=== PATIENT | female | born 1985 | race Caucasian/White ===

== ENCOUNTER 2017-11-24 21:40 | Emergency (ER) | payer OTHER ==
[2017-11-24] MEDS ORDERED: NS 1,000 ML IV ONE (21:50)
--- NOTE | 2017-11-24 22:01 | EDPHY ---
H & P Stated Complaint: ~ 7wks preg, bleeding since 1800 Source: Patient, Family () Exam Limitations: No limitations - Personal History LMP (Females 10-55): Current Tetanus Diphtheria and Acellular Pertussis (TDAP): Yes - Medical/Surgical History Hx Asthma: No Hx Chronic Respiratory Disease: No Hx Diabetes: No Hx Cardiac Disease: No Hx Renal Disease: No Hx Cirrhosis: No Hx Alcoholism: No Hx HIV/AIDS: No Hx Splenectomy or Spleen Trauma: No Other PMH: denies - Social History Smoking Status: Never smoked Time Seen by Provider: 11/24/17 21:48 HPI/ROS: HPI: This is a 32-year-old female who presents with Chief Complaint: ~ 7wks preg, bleeding since 1800 Location: Quality: Vaginal bleeding Duration: 3-4 hours prior to arrival Signs and Symptoms: no fever, no nausea, no vomiting, no hematemesis, no blood in stool, no abdominal bloating, no diarrhea, no back pain, no urinary symptoms , no vaginal discharge, no indigestion, no chest pain, no shortness of breath Timing: Sudden onset, improving Severity: Mild Context: Patient is a G2; with a history of 1st trimester miscarriage, completed in vitro fertilization treatments, currently 7 weeks , presents with sudden onset around 6:00 p.m. While using the restroom of bright red blood on her underwear. Denies any clots. Patient reports that since that time it has been very scant in nature. She denies any recent sexual intercourse , abdominal pain, nausea, vomiting, fevers, urinary symptoms. Patient is originally from [place] and is here with her on a business trip. She is unsure of her blood type. Patient takes Estrogel and progesterone. Modifying Factors: None Comment: ROS: see HPI Constitutional: No fever, no chills, no weight loss Eyes: No blurred vision Respiratory: No shortness of breath, no cough Cardiovascular: No chest pain, no palpitations Gastrointestinal: No nausea, no vomiting, no diarrhea, no hematemesis, no blood in stool Genitourinary: No dysuria, no blood in urine Extremities: No myalgias, no edema Neurologic: No weakness, no numbness Skin: No rashes, no petechiae Hematologic: No bruising, no bleeding MEDICAL/SURGICAL/SOCIAL HISTORY: Medical history: Generally healthy. Does not take any regular medications. Surgical history: Denies Social history: . Nonsmoker. Family history noncontributory. CONSTITUTIONAL: Well-developed, well-nourished adult white female, awake and alert, no obvious distress HEENT: Atraumatic and normocephalic, PERRL, EOMI. Nares patent; no rhinorrhea; no nasal mucosal edema. Tympanic membranes clear. Oropharynx clear, no exudate and moist pink mucosa. Airway patent. No lymphadenopathy. No meningismus. Cardiovascular: Normal S1/S2, regular rate, regular rhythm, without murmur rub or gallop. PULMONARY/CHEST: Symmetrical and nontender. Clear to auscultation bilaterally. Good air movement. No accessory muscle usage. ABDOMEN: Soft, nondistended, nontender, no rebound, no guarding, no peritoneal signs, no masses or organomegaly. No CVAT. EXTREMITIES: 2/2 pulses, strength 5/5, no deformities, no clubbing, no cyanosis or edema. NEUROLOGICAL: no focal neuro deficits. GCS 15. SKIN: Warm and dry, no erythema. no rash. Good capillary refill. (Samra,Terra) Constitutional: Initial Vital Signs Temperature (C) 36.6 C 11/24/17 21:45 Heart Rate 92 11/24/17 21:45 Respiratory Rate 19 11/24/17 21:45 Blood Pressure 104/81 H 11/24/17 21:45 O2 Sat (%) 96 11/24/17 21:45 O2 Delivery Mode Room Air Allergies/Adverse Reactions: No Known Allergies Allergy (Unverified 11/24/17 21:45) Home Medications: Medication Instructions Recorded Estrogel 11/24/17 Progesterone 11/24/17 Medical Decision Making - Diagnostics Imaging Results: Imaging Impressions Obstetrics Ultrasound 11/24/17 21:51 Impression: There is a single viable intrauterine gestation with an estimated age of 6 weeks 0 days, and biometry concordant with a gestational age based upon IVF. There is a small right-sided subchorionic hemorrhage present, and the heart rate is at the low-normal range. It may be worthwhile to consider follow-[facility] between 11 and 13 weeks gestation for further screening evaluation. Findings were discussed with Gary Meza M.D. at 23:18, on 11/24/2017. ED Course/Re-evaluation: Vital signs reviewed and stable upon arrival. Labs, urinalysis, ultrasound, IV fluids ordered Patient given 1 L normal saline. 1033: Urinalysis shows 3+ blood, trace bacteria but no ketones, no protein. Labs reviewed and WBC 14K Blood type= 0 positive 1115: End of Shift. Signed over to Dr. Meza pending ultrasound results. This patient was seen under the supervision of my secondary supervising physician. I evaluated care for this patient independently. Discussed this patient with Dr. Meza. (Leena Cabrales) 2339: Ultrasound called to me by Dr. Husam Alejandro. Small subchorionic hemorrhage. heart rate 117. 1249: I went over the patient's results with her. Including blood work, ultrasound findings. Discussed ultrasound findings in detail. They are comfortable being discharged. I did go over understanding of return precautions understands return emergency room if there is worsening bleeding, pelvic cramping. Small subchorionic hemorrhage. Heart rate 117. Return precautions discussed. Do recommend follow up with their OBGYN when he return to home. (Gary Meza) Differential Diagnosis: Vaginal bleeding including but not limited to ectopic , menses, miscarriage, and dysfunctional uterine bleeding. (Leena Cabrales) - Data Points Laboratory Results: Laboratory Results 11/24/17 22:05 11/24/17 22:05 11/24/17 11/24/17 11/24/17 22:05 22:05 22:05 WBC 14.08 10^3/uL H 10^3/uL (3.80-9.50) RBC 4.35 10^6/uL 10^6/uL (4.18-5.33) Hgb 13.5 g/dL g/dL (12.6-16.3) Hct 39.8 % % (38.0-47.0) MCV 91.5 fL fL (81.5-99.8) MCH 31.0 pg pg (27.9-34.1) MCHC 33.9 g/dL g/dL (32.4-36.7) RDW 12.0 % % (11.5-15.2) Plt Count 283 10^3/uL 10^3/uL (150-400) MPV 9.6 fL fL (8.7-11.7) Neut % (Auto) 74.3 % H % (39.3-74.2) Lymph % (Auto) 17.1 % % (15.0-45.0) [place] % (Auto) 6.0 % % (4.5-13.0) Eos % (Auto) 1.8 % % (0.6-7.6) Baso % (Auto) 0.4 % % (0.3-1.7) Nucleat RBC Rel Count 0.0 % % (0.0-0.2) Absolute Neuts (auto) 10.44 10^3/uL H 10^3/uL (1.70-6.50) Absolute Lymphs (auto) 2.41 10^3/uL 10^3/uL (1.00-3.00) Absolute Monos (auto) 0.85 10^3/uL H 10^3/uL (0.30-0.80) Absolute Eos (auto) 0.26 10^3/uL 10^3/uL (0.03-0.40) Absolute Basos (auto) 0.06 10^3/uL 10^3/uL (0.02-0.10) Absolute Nucleated RBC 0.00 10^3/uL 10^3/uL (0-0.01) Immature Gran % 0.4 % % (0.0-1.1) Immature Gran # 0.06 10^3/uL 10^3/uL (0.00-0.10) Sodium 141 mEq/L mEq/L (135-145) Potassium 3.6 mEq/L mEq/L (3.3-5.0) Chloride 106 mEq/L mEq/L (97-110) Carbon Dioxide 24 mEq/l mEq/l (22-31) Anion Gap 11 mEq/L mEq/L (8-16) BUN 8 mg/dL mg/dL (7-23) Creatinine 0.8 mg/dL mg/dL (0.6-1.0) Estimated GFR > 60 Glucose 84 mg/dL mg/dL (70-100) Calcium 9.6 mg/dL mg/dL (8.5-10.4) Beta HCG, Quant 86099.00 mIU/mL H mIU/mL (0.00-4.83) Urine Color Urine Appearance Urine pH Ur Specific [place] Urine Protein Urine Ketones Urine Blood Urine Nitrate Urine Bilirubin Urine Urobilinogen Ur Leukocyte Esterase Urine RBC Urine WBC Ur Epithelial Cells Urine Bacteria Urine Glucose Patient ABO/Rh O POSITIVE 11/24/17 21:50 WBC RBC Hgb Hct MCV MCH MCHC RDW Plt Count MPV Neut % (Auto) Lymph % (Auto) [place] % (Auto) Eos % (Auto) Baso % (Auto) Nucleat RBC Rel Count Absolute Neuts (auto) Absolute Lymphs (auto) Absolute Monos (auto) Absolute Eos (auto) Absolute Basos (auto) Absolute Nucleated RBC Immature Gran % Immature Gran # Sodium Potassium Chloride Carbon Dioxide Anion Gap BUN Creatinine Estimated GFR Glucose Calcium Beta HCG, Quant Urine Color PALE YELLOW Urine Appearance CLEAR Urine pH 8.0 H (5.0-7.5) Ur Specific [place] 1.002 (1.002-1.030) Urine Protein NEGATIVE (NEGATIVE) Urine Ketones NEGATIVE (NEGATIVE) Urine Blood 3+ H (NEGATIVE) Urine Nitrate NEGATIVE (NEGATIVE) Urine Bilirubin NEGATIVE (NEGATIVE) Urine Urobilinogen NEGATIVE EU EU (0.2-1.0) Ur Leukocyte Esterase NEGATIVE (NEGATIVE) Urine RBC 1-3 /hpf /hpf (0-3) Urine WBC 1-3 /hpf /hpf (0-3) Ur Epithelial Cells TRACE /lpf /lpf (NONE-1+) Urine Bacteria TRACE /hpf H /hpf (NONE SEEN) Urine Glucose NEGATIVE (NEGATIVE) Patient ABO/Rh Medications Given: Discontinued Medications Sodium Chloride (Ns) 1,000 mls @ 0 mls/hr IV ONCE ONE; Wide Open PRN Reason: Protocol Stop: 11/24/17 21:51 Last Admin: 11/24/17 22:08 Dose: 1,000 mls Departure - Departure Disposition: Home, Routine, Self-Care Clinical Impression: First trimester bleeding Condition: Good Instructions: Threatened Miscarriage (ED), Pelvic Rest (ED) Additional Instructions: Consume a minimum of 8-10 glasses of water or electrolyte fluid replacement drinks that include Gatorade, Powerade, Pedialyte. Please observe pelvic rest until all vaginal bleeding has stopped and you have been evaluated by your OBGYN. Activity is limited. Do not perform any moderate or strenuous activities. Please follow-up with your OBGYN in the next 3-5 days. Referrals: [facility] [place],. [[facility]] - As per Instructions (OBGYN in [place])
[2017-11-24 22:19] LABS: PLATELET COUNT 283 10^3/uL (150-400)
[2017-11-25 00:58] VITALS: BP 96/6
== END 2017-11-25 01:00 | disposition home or self-care (01) ==
DX: O26.851 Spotting complicating pregnancy, first trimester (principal); O99.280 Endocrine, nutritional and metabolic diseases complicating pregnancy, unspecified trimester; E86.9 Volume depletion, unspecified; Z3A.01 Less than 8 weeks gestation of pregnancy